=== PATIENT | female | born 1995 | race Caucasian/White ===

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

== ENCOUNTER 2017-11-04 22:04 | Emergency (ER) | payer OTHER ==
[2017-11-04 22:09] VITALS: BP 145/82; PULSE 102; RESP 20; TEMP 98.8
--- NOTE | 2017-11-04 22:36 | ED ---
Recheck HPI - General Chief Complaint: Recheck/Abnormal Lab/Rx Stated Complaint: test Time Seen by Provider: 11/04/17 22:21 Source: patient, RN notes reviewed Mode of arrival: ambulatory Limitations: no limitations - History of Present Illness Initial Comments: This is a 22-year-old female who presents to the emergency department with request for a test. Patient states that she is currently taking oral control. She states that she gets her period every 3 months. She states that it has been 3 months since her last period. Patient states that she has consistent taking her medication. She states that she took these control test this evening and it was positive. Patient states that she is "freaking out." She states that she has been drinking for the past 4 days. Patient denies any symptoms. Denies fevers or chills, shortness of breath, abdominal pain, nausea or vomiting, abnormal vaginal bleeding or discharge. - Related Data Home Medications Medication Instructions Recorded Confirmed [place] 1 tab PO DAILY 12/18/16 12/18/16 Allergies Allergy/AdvReac Type Severity Reaction Status Date / Time amoxicillin [Amoxicillin] AdvReac Diarrhea Verified 12/18/16 21:47 Review of Systems ROS Statement: Those systems with pertinent positive or pertinent negative responses have been documented in the HPI. ROS Other: All systems not noted in ROS Statement are negative. Past Medical History Past Medical History: No Reported History History of Any Multi-Drug Resistant Organisms: None Reported Past Surgical History: Adenoidectomy, Tonsillectomy Past Psychological History: No Psychological Hx Reported Smoking Status: Never smoker Past Alcohol Use History: Occasional Past Drug Use History: None Reported General Exam - General Exam Comments Initial Comments: General: Awake and alert, well-developed; in no apparent distress. HEENT: Head atraumatic, normocephalic. Pupils are equal, round and reactive to light. Extraocular movements intact. Oropharynx moist without erythema or exudate. Neck: Supple. Normal ROM. Cardiovascular: Regular rate and rhythm. No murmurs, rubs or gallops. Chest symmetrical. Respiratory: Lungs clear to auscultation bilaterally. No wheezes, rales or rhonchi. Normal respiratory effort with no use of accessory muscles. Abdomen: Soft, non-tender, non-distended. No rigidity, rebound or guarding. Musculoskeletal: Normal ROM, no tenderness bilateral upper and lower extremities. Ambulating normally. Skin: [place]ll[place], warm and dry without rashes or lesions. Neurological: Alert and oriented x3. CN II-XII grossly intact. Speech is fluent and answers are appropriate. No focal neuro deficits. Psychiatric: Tearful and anxious. Limitations: no limitations Course Vital Signs 11/04/17 22:05 Temperature 98.8 F Pulse Rate 102 H Respiratory 20 Rate Blood Pressure 145/82 O2 Sat by Pulse 99 Oximetry Medical Decision Making - Medical Decision Making This is a 23-year-old female who presents to the emergency department with request for test. Patient had a positive urine test at home prior to arrival. Patient denies any symptoms. Urine hCG is positive. Recommended following up with patient's ENVIRONMENTAL TEST TECHNICIAN. Vital signs are stable and patient is in no acute distress. She is in agreement with plan and voices understanding. She'll be discharged home at this time. All questions were answered. - Lab Data Lab Results 11/04/17 Range/Units 22:28 Urine HCG, Qual Detected (Not Detectd) Disposition Clinical Impression: Positive test Disposition: HOME SELF-CARE Condition: Good Instructions: (ED) Additional Instructions: Please follow-up with your ENVIRONMENTAL TEST TECHNICIAN within 1-2 days. Please follow up with primary care provider within 1-2 days. Return to emergency department if symptoms should worsen or any concerns arise. Is patient prescribed a controlled substance at d/c from ED?: No Referrals: Marina Leyva MD [Primary Care Provider] - 1-2 days Time of Disposition: 22:45
== END 2017-11-04 22:52 | disposition home or self-care (01) ==
LOC: EC 22:04
DX: Z32.01 Encounter for pregnancy test, result positive (principal); Z3A.08 8 weeks gestation of pregnancy; Z88.0 Allergy status to penicillin; Z79.3 Long term (current) use of hormonal contraceptives
CPT/HCPCS: 81025; 99282